=== PATIENT | female | born 1985 | race Hispanic/Latino ===

== ENCOUNTER 2018-08-02 01:38 | Emergency (ER) | payer OTHER ==
[~2018-08-02] VITALS: Ht 165.1 cm; Wt 90.7 kg
[2018-08-02 04:10] LABS: BASOPHILS % 0.4 % (0.0-1.0); EOSINOPHILS # (AUTO) 0.2 (0.0-0.4); EOSINOPHILS % 1.5 % (0.0-6.0); HEMATOCRIT 42.7 % (34.2-44.1); HEMOGLOBIN 14.4 g/dL (12.0-16.0); LYMPHOCYTES # (AUTO) 3.5 (1.0-3.2); LYMPHOCYTES % 34.5 % (18.0-39.1); MEAN CORPUSCULAR HGB CONC 33.7 g/dL (31-35); MEAN CORPUSCULAR VOLUME 85.9 fL (81-99); MONOCYTES # (AUTO) 0.4 (0.2-0.8); MONOCYTES % 4.1 % (4.4-11.3); NEUTROPHILS # (AUTO) 5.9 (2.1-6.9); NEUTROPHILS % 59.2 % (38.7-80.0); PLATELET COUNT 204 x10e3/uL (140-360); RED BLOOD COUNT 4.97 x10e6/uL (3.6-5.1); RED CELL DISTRIBUTION WIDTH 12.9 % (11.7-14.4)
[2018-08-02 04:13] LABS: INR 0.93; PARTIAL THROMBOPLASTIN TIME 32.3 seconds (23.8-35.5); PROTHROMBIN TIME 13.3 seconds (11.9-14.5)
[2018-08-02 04:19] LABS: ALANINE AMINOTRANSFERASE 48 IU/L (0-55); ALBUMIN/GLOBULIN RATIO 1.2 (0.8-2.0); ALKALINE PHOSPHATASE 84 IU/L (40-150); ANION GAP 15.9 mmol/L (8-16); BLOOD UREA NITROGEN 8 mg/dL (7-26); BUN/CREATININE RATIO 12 (6-25); CALCIUM 9.2 mg/dL (8.4-10.2); CARBON DIOXIDE 20 mmol/L (22-29); CHLORIDE 109 mmol/L (98-107); CREATINE KINASE 72 IU/L (29-168); CREATININE, SERUM 0.69 mg/dL (0.57-1.11); EST GLOMERULAR FILTRATION RATE > 60 ML/MIN (60-); GLUCOSE 121 mg/dL (74-118); MAGNESIUM 2.1 MG/DL (1.3-2.1); POTASSIUM 3.9 mmol/L (3.5-5.1); SODIUM 141 mmol/L (136-145)
[2018-08-02 04:20] LABS: BACTERIA,URINE FEW /HPF; BILIRUBIN,URINE NEGATIVE (NEGATIVE); CLARITY,URINE CLEAR (CLEAR); COLOR,URINE YELLOW (YELLOW); EPITHELIAL CELLS,URINE FEW /LPF; KETONES,URINE NEGATIVE (NEGATIVE); LEUKOCYTE ESTERASE ,URINE NEGATIVE (NEGATIVE); NITRITE,URINE NEGATIVE (NEGATIVE); PREGNANCY TEST, URINE NEGATIVE (NEGATIVE); PROTEIN,URINE DIPSTICK NEGATIVE (NEGATIVE); RBC,URINE 0-5 /HPF (0-5); URINE UROBILINOGEN 0.2 mg/dL (0.2 - 1); WBC,URINE (MAN) 0-5 /HPF (0-5)
--- NOTE | 2018-08-02 06:31 | Diagnostic Imaging Report ---
EXAMINATION: CHEST 2 VIEWS INDICATION: Shortness of breath, chest pain COMPARISON: None FINDINGS: TUBES and LINES: None. LUNGS: Lungs are well inflated. Lungs are clear. There is no evidence of pneumonia or pulmonary edema. PLEURA: No pleural effusion or pneumothorax. HEART AND MEDIASTINUM: The cardiomediastinal silhouette is unremarkable. BONES AND SOFT TISSUES: No acute osseous lesion. Soft tissues are unremarkable. UPPER ABDOMEN: No free air under the diaphragm. IMPRESSION: No acute thoracic abnormality. Signed by: Dr. Matthew Rashid M.D. on 08/02/2018 6:27 AM
--- OUTSIDE RECORDS SUMMARY | 2018-08-02 14:29 | XMS REPORT | Encounter Summary ---
Author Organization Unknown Address [address] [place] [id number] Phone [phone] Reason for Visit Sports Physical / PPE Instructions 1. Physical examination procedure Discussion Note: None recorded. Patient educational handouts: No information available. Plan of Care Patient Instructions follow up pcp with any concerns Reminders Provider Appointments None recorded. Lab None recorded. Referral None recorded. Procedures None recorded. Surgeries None recorded. Imaging None recorded. Medications No Medications Reported Medications Administered None recorded. Vitals Height Weight BMI Blood Pressure 5 ft 5 in 210 lbs 34.9 112/70 Lab Results None recorded. Allergies Code Code System Name Reaction Severity Onset NKDA Problems None recorded. Procedures None recorded. 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 History of Present Illness Acne Consultation Reported By: Patient HPI: Quality: not itchy, not painful. Context: current skin products:. Aggravating factors: nothing makes it worse. Associated Symptoms: no fever, no cold symptoms Physical Request Reported By: Patient HPI: Physical Examination Request No medical complaints Review of Systems Female Sports Physical ROS Reported By: Patient Cardiovascular: Cardiovascular: no loss of consciousness, no chest pain with exercise, no getting tired more quickly than peers, no heart racing or skipped beats, no history of hypertension or high cholesterol, no known heart murmur, no family or relatives of heart problems or unexpected before age 50, No family members diagnosed with dilated cardiomyopathy, hypertrophic cardiomyopathy, long QT syndrome (or other ion channelpathy), Marfan's syndrome, or abnormal heart rhythm, no severe viral infection within the last month, Has not been denied or restricted participation in sports for any heart problems Neurologic: Neurologic: no seizures, no headaches, no numbness, tingling of arms, hands, legs, or feet, no history of stinger, burner or pinched nerve, no dizziness during or after exercise Allergic/Immunologic: Allergy/Immunologic: history of allergies to pollen Integumentary: Skin: no current skin problems Eye symptoms: vision problems no problems with eyes or vision Respiratory: Respiratory: seasonal allergies that require medical treatment Musculoskeletal: Musculoskeletal: no use of special protective or corrective equipment or devices, no sprain/strain or swelling after injury, no broken or fractured bones or dislocated joints. History of problems with pain or swelling in muscles, tendons, bones or joints none Psychiatric: Self Image does not want to weigh more or less, does not lose weight to meet weight requirements for sport, does not feel stressed out Hematologic/Lymphatic: Hematologic/Lymphatic no sickle cell trait or disease Genitourinary: Menstrual history When was first menstrual period:, When was your most recent menstrual period?, How much time do you usually have from the start of one period to the start of another?, How many periods have you had in the last year?, What is the longest time between periods in the last year? Physical Exam Acne, Sports Physical/Preparticipation Physical Evaluation - Female Reported By: Patient Skin: Acne no acne. General Appearance normal appearance Eyes: Visual Assessment distance acuity: right, with current correction: 20/20, distance acuity: left, with current correction: 20/20. Pupils PERRL General Appearance: General Appearance well-appearing Ears, Nose, Throat: Ears, Nose, Throat normal ears, normal nose, normal pharynx Lymph Nodes: Lymph Nodes no enlargement Cardiovascular System: Auscultation normal heart sounds in supine position, normal heart sounds in sitting position, normal heart sounds while standing. Arterial Pulses normal lower extremity pulses Lungs: Auscultation no adventitious sounds Abdomen: Auscultation normal bowel sounds Marfan's Stigmata: Marfan's Stigmata: no arachnodactyly, no pectus excavatum (funnel breast), no joint hypermobility, no scoliosis Back: Back full range of motion without pain Musculoskeletal System: Neck normal appearance: no deformities, no pain elicited by motion. Shoulder/Arm normal appearance: no deformities, full range of motion with out pain. Elbow normal appearance: no deformities, full range of motion with out pain. Forearm normal appearance: no deformities, full range of motion with out pain. Wrist/Hand normal appearance: no deformities, full range of motion with out pain. Hips normal appearance: no deformities, full range of motion with out pain. Knee normal appearance: no deformities, full range of motion with out pain. Leg normal appearance: no deformities, full range of motion with out pain. Ankle normal appearance: no deformities, full range of motion with out pain. Foot normal appearance: no deformities, full range of motion with out pain
--- OUTSIDE RECORDS SUMMARY | 2018-08-02 14:29 | XMS REPORT | Encounter Summary ---
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 Adult health examination Discussion Note: None recorded. Patient educational handouts: No information available. Plan of Care Reminders Provider Appointments None recorded. Lab None recorded. Referral None recorded. Procedures None recorded. Surgeries None recorded. Imaging None recorded. Medications No Medications Reported Medications Administered None recorded. Vitals Height Weight BMI Blood Pressure 5 ft 5 in 205 lbs 34.1 120/80 Lab Results None recorded. Allergies Name Reaction Severity Onset NKDA Problems None recorded. Procedures None recorded. 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 History of Present Illness Physical Request Reported By: Patient HPI: Physical Examination Request No medical complaints Review of Systems Female Sports Physical ROS Reported By: Patient Constitutional: General medical history Medical illness or injury since last check up or sports physical? no, Have you been hospitalized overnight in the past year? no, Have you ever had surgery? no, Are you missing any paired organs no?, Are you under a doctor's care? yes, Are you currently using any prescription or non-prescription medication or pills or using an inhaler? no, Have you ever become ill from exercising in the heat no? Cardiovascular: Cardiovascular: no loss of consciousness, no [...] sports for any heart problems Neurologic: Neurologic: has not been knocked out, become unconscious, or lost memory, no seizures, no headaches, no numbness, tingling of arms, hands, legs, or feet, no history of stinger, burner or pinched nerve, no dizziness during or after exercise Allergic/Immunologic: Allergy/Immunologic: no history of allergies Integumentary: Skin: no current skin problems Eye symptoms: vision problems problems with eyes or vision Respiratory: Respiratory: no unexpected shortness of breath with exercise, no history of asthma, no seasonal allergies Musculoskeletal: Musculoskeletal: no use of special protective [...] periods in the last year? Physical Exam Adult Female Complete Constitutional: General Appearance: healthy-appearing, well-nourished, well-developed, overweight. Level of Distress: NAD. Ambulation: ambulating normally Psychiatric: Mental Status: active and alert. Orientation: to time, to place, to person Eyes: Lids and Conjunctivae: non-injected, no discharge, no pallor. Pupils: PERRLA. Corneas: grossly intact. EOM: EOMI. Lens: clear. Sclerae: non-icteric. Vision: acuity grossly intact Hmo-Anug-Ssbjp-Throat: Ears: no lesions on external ear, no outer ear tenderness, EACs clear, TMs clear. Hearing: no hearing loss. Nose: no lesions on external nose, nares patent, no septal deviation, nasal passages clear, no sinus tenderness, no nasal discharge. Lips, Teeth, and Gums: no mouth or lip ulcers, no bleeding gums, normal dentition. Oropharynx: moist mucous membranes, no erythema, no exudates, tonsils not enlarged Neck: Neck: supple, trachea midline, no masses, FROM. Lymph Nodes: no cervical LAD, no supraclavicular LAD. Thyroid: no enlargement, non-tender, no nodules Lungs: Respiratory effort: no dyspnea. Auscultation: breath sounds normal Cardiovascular: Heart Auscultation: RRR, no murmurs. Neck vessels: no carotid bruits. Pulses including femoral / pedal: normal throughout Abdomen: Bowel Sounds: normal. Inspection and Palpation: soft, non-distended, no tenderness, no guarding, no rebound tenderness, no masses, no CVA tenderness. Liver: non-tender, no hepatomegaly. Spleen: non-tender, no splenomegaly. Hernia: none palpable Musculoskeletal:: Motor Strength and Tone: normal motor strength, normal tone. Joints, Bones, and Muscles: normal movement of all extremities, no bony abnormalities, no contractures, no tenderness. Extremities: no cyanosis, no edema, no varicosities, no palpable cord Neurologic: Gait and Station: normal gait, normal station. Cranial Nerves: grossly intact. Sensation: grossly intact. Reflexes: DTRs 2+ bilaterally throughout. Coordination and Cerebellum: [id number] intact, no tremor Skin: Inspection and palpation: no rash, no lesions, no ulcer, no abnormal nevi, no induration, no nodules, good turgor, no jaundice. Nails: normal Back: Thoracolumbar Appearance: normal curvature
--- OUTSIDE RECORDS SUMMARY | 2018-08-02 14:30 | XMS REPORT | Encounter Summary ---
Author Organization Unknown Address [address] [place] [address] Phone [phone] Reason for Visit Medical Complaint Instructions 1. Urinary tract infectious disease urinalysis, dipstick culture, urine nitrofurantoin 25 mg/5 mL oral suspension 2. Body mass index 30+ - obesity body mass index: care instructions Discussion Note Advised to increase water intake, light or sugar-free cranberry juice intake, wear cotton underwear, empty bladder frequently, practice good perineal hygiene. Avoid using AZO for more than 2 days. Instructed to complete abx completely. RTC or seek PCP care in 48 hours if s/s persists or worsens. Patient verbalized understanding. Plan of Care Reminders Provider Appointments None recorded. Lab Urinalysis, Dipstick 03/10/2018 [facility] Culture, Urine 03/10/2018 [facility] Referral None recorded. Procedures None recorded. Surgeries None recorded. Imaging None recorded. Medications Name Start Date nitrofurantoin 25 mg/5 mL oral suspension Take 10 mL every 6 hours by oral route as directed for 5 days. Medications Administered None recorded. Vitals Height Weight BMI Blood Pressure 5 ft 5 in 200 lbs 33.3 kg/m2 110/74 mm[Hg] Lab Results Date Name Specimen Result Interpretation Description Value Range Status Address 03/10/2018 Urinalysis, Dipstick Color : Yellow [facility]: [address] [place] [address] Clarity : Clear [facility]: [address] [place] [address] Leukocytes : Trace [facility]: [address] [place] [address] Nitrites : Negative [facility]: [address] [place] [address] Urobilinogen : Normal [facility]: [address] [place] [address] Protein : Negative [facility]: [address] [place] [address] Ph : 8.0 [facility]: [address] [place] [address] Blood : Negative [facility]: [address] [place] [address] Specific [place] : 1.000 [facility]: [address] [place] [address] Ketones : Negative [facility]: [address] [place] [address] Bilirubin : Negative [facility]: [facility] Glucose Negative [facility]: [facility] Allergies Code Code System Name Reaction Severity Status Onset NKDA Problems No Known Problems Procedures None recorded. Vaccine List Vaccine Type influenza, injectable, quadrivalent 06/10/20150.5 mL 06/17/2016 Social History Smoking Status Never Smoker Past Encounters 03/10/2018 Urinary Tract Infectious Disease; Body Mass Index 30+ - Obesity Juan Francisco Cross NP: [address] [place] [address], Ph. History of Present Illness [id number] Reported By: Patient HPI: Location: abdomen, urethra. Quality: pressure, burning. Severity: worsening, mild. Duration: intermittent. Onset/Timing: worse, gradual. Context: no known exposure to STD, no prior history of STDs, sexually active, denies possible , LMP5/14/18, heterosexual, history of urine cultures/antibiotic treatment, wipes anterior to posterior, voids after intercourse. Modifying factors OTC medication. Associated Symptoms: no fever/chills, no flank pain, no jaundice, no blood in the urine, no vaginal discharge, no urgency, no blisters on genitals, no rash on genitals, no muscle aches, no headache, pain during urination, urinary frequency Review of Systems:ROS as noted in the HPI Review of Systems Basic Reported By: Patient Physical Exam Adult Basic, Adult Female Complete Reported By: Patient Constitutional: General Appearance: healthy-appearing, well-nourished, well-developed. Level of Distress: NAD. Ambulation: ambulating normally Psychiatric: Mental Status: active and alert. Orientation: to time, to place, to person Lungs: Respiratory effort: no dyspnea, no tachypnea, no use of accessory muscles, no intercostal retractions. Auscultation: breath sounds normal Cardiovascular: Heart Auscultation: RRR, no murmurs Abdomen: Bowel Sounds: normal. Inspection and Palpation: soft, non-distended, no tenderness, no guarding, no rebound tenderness, no masses, no CVA tenderness. Liver: non-tender, no hepatomegaly
== END 2018-08-02 04:30 | disposition home or self-care (01) ==
LOC: ER 01:38
DX: R07.89 Other chest pain (principal); F41.1 Generalized anxiety disorder
CPT/HCPCS: 36415; 71046; 80053; 81001; 81025; 82550; 82553; 83735; 84484; 85025; 85379; 85610; 85730; 87086; 93005; 99283